=== PATIENT | female | born 1965 | race Caucasian/White ===

== ENCOUNTER 2017-03-10 13:01 | Emergency (ER) | payer MEDICAID ==
[2017-03-10 14:11] LABS: BASOPHIL % 0.2 % (0-2); PLATELET COUNT 179 x10^3mcL (130-400); RED CELL DISTRIBUTION WIDTH 13.2 % (11.5-14.5)
[2017-03-10 14:16] LABS: CALCIUM 8.6 mg/dL (8.5-10.1); CARBON DIOXIDE 24.8 mmol/L (21-32); CHLORIDE SERUM 99 mmol/L (98-107); CREATININE SERUM 0.9 mg/dL (0.6-1.0); GFR1 > 60 mL/min; GLUCOSE SERUM 192 mg/dL (74-106); POTASSIUM SERUM 3.9 mmol/L (3.5-5.1); SODIUM SERUM 132 mmol/L (136-145)
[2017-03-10 14:20] LABS: ALKALINE PHOSPHATASE 108 U/L (46-116); ALT/SGPT 29 U/L (14-59); AST/SGOT 19 U/L (15-37); BILIRUBIN TOTAL 0.33 mg/dL (0.20-1.00); LIPASE 209 IU/L (73-393); TOTAL PROTEIN, SERUM 7.8 g/dL (6.4-8.2)
[2017-03-10 14:21] LABS: ALBUMIN 3.2 g/dL (3.4-5.0)
[2017-03-10 14:42] VITALS: BP 134/70
== END 2017-03-10 15:53 | disposition home or self-care (01) ==
LOC: ED 13:01
PROVIDERS: Emergency Medicine
DX: K00.0 Anodontia (principal); I10 Essential (primary) hypertension; E11.9 Type 2 diabetes mellitus without complications
CPT/HCPCS: J1170; J7030; Q0162

== ENCOUNTER 2018-01-22 12:15 | Inpatient (IN) | payer MEDICAID ==
[~2018-01-22] VITALS: Ht 147.3 cm; Wt 57.6 kg
[2018-01-22 12:19] VITALS: Ht 147.3 cm; Wt 57.6 kg
[2018-01-22 14:20] LABS: CALCIUM 8.8 mg/dL (8.5-10.1); CARBON DIOXIDE 25.7 mmol/L (21-32); CHLORIDE SERUM 105 mmol/L (98-107); CREATININE SERUM 0.6 mg/dL (0.6-1.0); GFR1 > 60 mL/min; GLUCOSE SERUM 124 mg/dL (74-106); POTASSIUM SERUM 3.4 mmol/L (3.5-5.1); SODIUM SERUM 139 mmol/L (136-145)
[2018-01-22 14:25] LABS: ALBUMIN 3.6 g/dL (3.4-5.0); ALKALINE PHOSPHATASE 113 U/L (46-116); ALT/SGPT 22 U/L (14-59); AST/SGOT 13 U/L (15-37); BILIRUBIN TOTAL 0.4 mg/dL (0.20-1.00); TOTAL PROTEIN, SERUM 7.9 g/dL (6.4-8.2)
[2018-01-22 14:26] LABS: BASOPHIL % 0.3 % (0-2); PLATELET COUNT 239 x10^3mcL (130-400); RED CELL DISTRIBUTION WIDTH 13.8 % (11.5-14.5)
[2018-01-22 14:48] LABS: AMPHETAMINE QUAL UR NONE DETECTED (See below)
[2018-01-22] MEDS ORDERED: ASPIR 8181 MG PO (14:56)
[2018-01-22] MEDS ORDERED: METFORMIN500 M1 PO (14:57)
[2018-01-22 15:22] LABS: UA SPECIFIC GRAVITY >=1.030 (1.005-1.035); microscopic required? YES; urine erythrocyte NEGATIVE (NEGATIVE)
[2018-01-22 15:35] LABS: T3 TOTAL 0.89 ng/mL
[2018-01-22 15:39] LABS: CHOLESTEROL/HDL RATIO 3.3; MAGNESIUM 2.1 mg/dL (1.8-2.4); PHOSPHOROUS 3.5 mg/dL (2.5-4.9)
[2018-01-22 15:47] LABS: FREE T4 0.91 ng/dL (0.76-1.46); FREE THYROXINE INDEX 1.7 ug/dL (1.4-4.5); T4(THYROXINE) 5.2 ug/dL (4.7-13.3)
[2018-01-22 15:58] VITALS: BP 144/76
[2018-01-22 17:07] VITALS: BP 127/67
[2018-01-22] MEDS ORDERED: ZESTRIL40 MG PO (17:16)
[2018-01-22 20:37] VITALS: BP 129/74
[2018-01-23 06:24] VITALS: BP 109/58
[2018-01-23 06:59] LABS: CALCIUM 8.7 mg/dL (8.5-10.1); CARBON DIOXIDE 24.2 mmol/L (21-32); CHLORIDE SERUM 111 mmol/L (98-107); CREATININE SERUM 0.6 mg/dL (0.6-1.0); GFR1 > 60 mL/min; GLUCOSE SERUM 125 mg/dL (74-106); POTASSIUM SERUM 4.1 mmol/L (3.5-5.1); SODIUM SERUM 144 mmol/L (136-145)
[2018-01-23 07:01] LABS: BASOPHIL % 0.4 % (0-2); PLATELET COUNT 225 x10^3mcL (130-400); RED CELL DISTRIBUTION WIDTH 13.5 % (11.5-14.5)
[2018-01-23 09:00] VITALS: BP 128/71
[2018-01-23 13:42] VITALS: BP 126/64
[2018-01-23 17:30] VITALS: BP 127/70
[2018-01-23 21:49] VITALS: BP 149/69
[2018-01-24 06:03] VITALS: BP 122/59
[2018-01-24 06:14] LABS: BASOPHIL % 0.4 % (0-2); PLATELET COUNT 229 x10^3mcL (130-400); RED CELL DISTRIBUTION WIDTH 13.7 % (11.5-14.5)
[2018-01-24 06:36] LABS: CALCIUM 8.7 mg/dL (8.5-10.1); CARBON DIOXIDE 26.2 mmol/L (21-32); CHLORIDE SERUM 109 mmol/L (98-107); CREATININE SERUM 0.7 mg/dL (0.6-1.0); GFR1 > 60 mL/min; GLUCOSE SERUM 134 mg/dL (74-106); POTASSIUM SERUM 4.4 mmol/L (3.5-5.1); SODIUM SERUM 146 mmol/L (136-145)
[2018-01-24 08:50] VITALS: BP 115/55
[2018-01-24 12:42] VITALS: BP 140/66
[2018-01-24 15:46] VITALS: BP 163/74
[2018-01-24 17:30] VITALS: BP 125/54
[2018-01-24 21:14] VITALS: BP 134/71
[2018-01-25 06:11] LABS: BASOPHIL % 0.4 % (0-2); PLATELET COUNT 221 x10^3mcL (130-400); RED CELL DISTRIBUTION WIDTH 13.8 % (11.5-14.5)
[2018-01-25 06:25] VITALS: BP 110/60
[2018-01-25 06:28] LABS: CALCIUM 8.4 mg/dL (8.5-10.1); CARBON DIOXIDE 26.3 mmol/L (21-32); CHLORIDE SERUM 111 mmol/L (98-107); CREATININE SERUM 0.7 mg/dL (0.6-1.0); GFR1 > 60 mL/min; GLUCOSE SERUM 111 mg/dL (74-106); POTASSIUM SERUM 4.7 mmol/L (3.5-5.1); SODIUM SERUM 145 mmol/L (136-145)
[2018-01-25 08:22] VITALS: BP 118/61
[2018-01-25 12:10] VITALS: BP 142/68
[2018-01-25 17:07] VITALS: BP 142/68
== END 2018-01-25 17:52 | disposition home or self-care (01) | DRG 243 ==
LOC: ED 12:15 → DU 14:53
PROVIDERS: Emergency Medicine; Internal Medicine
DX: K21.9 Gastro-esophageal reflux disease without esophagitis (principal); N17.0 Acute kidney failure with tubular necrosis; E11.65 Type 2 diabetes mellitus with hyperglycemia; M94.0 Chondrocostal junction syndrome [Tietze]; E87.6 Hypokalemia; I10 Essential (primary) hypertension; Z92.3 Personal history of irradiation; Z68.26 Body mass index [BMI] 26.0-26.9, adult; Z85.3 Personal history of malignant neoplasm of breast; Z79.84 Long term (current) use of oral hypoglycemic drugs
CPT/HCPCS: 82962; 83880; 84439; A9500; J2785; J7030; Q0092

== ENCOUNTER 2019-07-03 14:00 | Emergency (ER) | payer MEDICAID ==
[~2019-07-03] VITALS: Ht 147.3 cm; Wt 57.6 kg
[~2019-07-03 14:00] MED LIST: ASPIR 8181 MG PO; METFORMIN500 M1 PO; ZESTRIL40 MG PO
[2019-07-03 14:05] VITALS: Ht 147.3 cm; Wt 57.6 kg
[2019-07-03 14:58] LABS: BASOPHIL % 0.3 % (0-2); PLATELET COUNT 274 x10^3mcL (130-400); RED CELL DISTRIBUTION WIDTH 13.5 % (11.5-14.5)
[2019-07-03 15:07] LABS: CARBON DIOXIDE 28.5 mmol/L (21-32); CHLORIDE SERUM 102 mmol/L (98-107); CREATININE SERUM 0.7 mg/dL (0.6-1.0); GFR1 > 60 mL/min; GLUCOSE SERUM 126 mg/dL (74-106); POTASSIUM SERUM 3.8 mmol/L (3.5-5.1); SODIUM SERUM 139 mmol/L (136-145)
[2019-07-03 15:12] LABS: ALKALINE PHOSPHATASE 127 U/L (46-116); ALT/SGPT 27 U/L (14-59); AST/SGOT 15 U/L (15-37); BILIRUBIN TOTAL 0.4 mg/dL (0.20-1.00)
[2019-07-03 15:13] LABS: TOTAL PROTEIN, SERUM 8.4 g/dL (6.4-8.2)
[2019-07-03 18:23] VITALS: BP 140/74
== END 2019-07-03 18:20 | disposition home or self-care (01) ==
LOC: ED 14:00
PROVIDERS: Emergency Medicine
DX: I16.0 Hypertensive urgency (principal); E11.9 Type 2 diabetes mellitus without complications; R10.9 Unspecified abdominal pain
CPT/HCPCS: 36415